=== PATIENT | male | born 1985 | race Caucasian/White ===

== ENCOUNTER 2016-09-15 21:01 | Emergency (ER) | payer OTHER ==
[~2016-09-15] VITALS: Ht 177.8 cm; Wt 98.3 kg
[2016-09-15] MEDS ORDERED: ONDANSETRON 2MG/ML, 2ML IVPush ONE (21:30)
[2016-09-15] MEDS ORDERED: KETOROLAC 30 MG/1 ML IVPush ONE (21:30)
[2016-09-15 21:40] VITALS: BP 139/85
[2016-09-15] MEDS ORDERED: ONDANSETRON 2MG/ML, 2ML ONE (21:48)
[2016-09-15] MEDS ORDERED: KETOROLAC 30 MG/1 ML ONE (21:48)
[2016-09-15 22:02] LABS: ASPARTATE AMINO TRANSFERASE 22 U/L (15-37); BLOOD UREA NITROGEN 18 mg/dL (7-18)
== END 2016-09-15 22:58 | disposition home or self-care (01) ==
LOC: ED 22:53
DX: R10.9 Unspecified abdominal pain (principal)
CPT/HCPCS: 36415; 74176; 80053; 81003; 83690; 85025; 96374; 96375; 99285; J1885; J2405